=== PATIENT | male | born 1965 | race Caucasian/White ===

== ENCOUNTER → 2016-10-24 | Outpatient (CLI) | payer MEDICAID ==
[~2016-10-24] MED LIST: CIPRO 500MG TA500 MG PO; FLAGYL 500MG.500 MG PO; LORTAB 5/500 501 TAB PO
--- NOTE | 2016-10-24 14:56 | RADIOLOGY REPORT PS360 ---
UGI SERIES W/ AIR HISTORY: SOLID FOOD DYSPHAGIA ORDERING PHYSICIAN: Juma Rowell MD PATIENT AGE: 51 years COMPARISON: None FINDINGS: There is a small sliding hiatal hernia with nonconstricting Schatzki's ring. Mild GE reflux is noted during the exam. The stomach and duodenum have an unremarkable appearance. There is no evidence of hiatal hernia. No ulcer or mass evident. No mucosal abnormalities apparent. There is normal peristalsis. The duodenal C-loop is nondisplaced. FLUOROSCOPY TIME : 1 minute and 32 seconds. IMPRESSION: Small sliding hiatal hernia with a nonconstricting shot C3 with mild GE reflux otherwise negative upper GI
== END ==
LOC: RAD 09:31
DX: R13.10 Dysphagia, unspecified (principal)

== ENCOUNTER 2016-12-03 06:58 | Day surgery (SDC) | payer MEDICAID ==
--- NOTE | 2016-12-03 08:15 | Operative Note ---
Endoscopy Report Date: 12/03/16 Preoperative diagnosis: 1. Dysphagia 2. Screening colonoscopy Procedure Type of procedure: 1. Esophagogastroduodenoscopy with biopsies 2. Total colonoscopy to terminal ileum with polypectomy Indications: 51-year-old white male. Sent for screening colonoscopy. He noted that he also had some dysphagia and choking symptoms which have been intermittent. I was also asked to see the patient about possible upper endoscopy. He underwent upper gastrointestinal series which revealed small hiatal hernia. Consent was obtained and patient was taken to same-day surgery endoscopy procedure room. He was given Versed and fentanyl for anesthesia. 9 mg Versed and 150 g fentanyl were given for the duration of the procedures. Attention was first turned to upper endoscopy. Olympus endoscope was inserted via the oropharynx. Distal esophagus revealed significant linear erosions with a couple of areas of patchy exudate. There was no constricting Schatzki's ring. Stomach was cannulated and insufflated and retroflexion revealed a very small hiatal hernia. Overall stomach appeared relatively unremarkable with only mild gastritis. Pylorus was traversed and duodenal bulb and duodenal sweep were unremarkable. Gastric antral mucosal biopsy was obtained for CLOtest for H. pylori. Couple of biopsies were obtained of the erosive esophagitis in the distal esophagus. Extension was turned colonoscopy. Digital examination revealed uniformly enlarged prostate. Variable stiffness Olympus colonoscope was inserted via the anus and advanced the cecum without difficulty. Ileocecal valve and appendiceal orifice were clearly identified. Colonoscope was advanced into the terminal ileum which appeared grossly normal. Colonoscope was withdrawn through the colon with careful surveillance. He had moderate sigmoid diverticulosis. There was a diminutive polyp in the sigmoid colon removed with cold biopsy forceps. Retroflexion revealed nonpathologic internal hemorrhoids. Colonoscope was withdrawn. Findings 1. Hiatal Hernia 2. esophagitis 3. Polyp, Diverticulosis Recommendations 1. PPI 2. Fiber supplementation Follow-Up Follow-Up: Likely will plan for follow-up colonoscopy in 5 years at 0815
[2016-12-03 16:20] VITALS: BP 97/57
== END 2016-12-03 08:30 | disposition home or self-care (01) ==
LOC: SDC 06:58
PROVIDERS: Surgery
PROC: 0DB38ZX Excision of Lower Esophagus, Via Natural or Artificial Opening Endoscopic, Diagnostic (ICD-10-PCS; 2016-12-03)
PROC: 0DB78ZX Excision of Stomach, Pylorus, Via Natural or Artificial Opening Endoscopic, Diagnostic (ICD-10-PCS; 2016-12-03)
PROC: 0DBN8ZX Excision of Sigmoid Colon, Via Natural or Artificial Opening Endoscopic, Diagnostic (ICD-10-PCS; principal; 2016-12-03 07:30)
DX: Z12.11 Encounter for screening for malignant neoplasm of colon (principal); K57.30 Diverticulosis of large intestine without perforation or abscess without bleeding; D12.5 Benign neoplasm of sigmoid colon; K44.9 Diaphragmatic hernia without obstruction or gangrene; K22.10 Ulcer of esophagus without bleeding; R13.10 Dysphagia, unspecified